=== PATIENT | female | born 1965 ===

== ENCOUNTER 2024-01-06 11:45 | Inpatient (IN) | payer OTHER ==
[~2024-01-06] VITALS: Wt 72.1 kg
[2024-01-06 12:47] VITALS: BP 113/77
[2024-01-06] MEDS ORDERED: NEURONTIN300 MG PO (12:50)
[2024-01-06] MEDS ORDERED: VOLTAREN (12:51)
[2024-01-06] MEDS ORDERED: NORFLEX (12:52)
[2024-01-06 12:53] VITALS: BP 100/60
[2024-01-06 16:40] LABS: RH POSITIVE
[2024-01-10] MEDS ORDERED: TRANEXAMIC ACID 100MG/1ML (1000MG) AMPUL IV ONE ×2 (19:00)
[2024-01-10] MEDS ORDERED: CEFAZOLIN SODIUM 1,000 MG VIAL IV ONE (19:00)
[2024-01-10] MEDS ORDERED: ONDANSETRON HCL 2 MG/ML VIAL IV PRN (19:45)
[2024-01-10] MEDS ORDERED: OxyCODONE HCL 5 MG TABLET (ROXICODONE) PO PRN (19:45)
[2024-01-10] MEDS ORDERED: MORPHINE SULFATE 4 MG/ML CARTRIDGE IV PRN (19:45)
[2024-01-10] MEDS ORDERED: SODIUM CHLORIDE 0.45 % 1,000 ML IV SCH (19:45)
[2024-01-10] MEDS ORDERED: MORPHINE SULFATE 4 MG/ML VIAL IV ONE ×2 (20:35→21:05)
[2024-01-10] MEDS ORDERED: ONDANSETRON HCL 2 MG/ML VIAL IV ONE (21:05)
[2024-01-10] MEDS ORDERED: MEPERIDINE HCL 25 MG/ML AMPUL IV ONE (23:40)
[2024-01-11] MEDS ORDERED: ACETAMINOPHEN 500 MG GEL..CAP PO SCH
[2024-01-11] MEDS ORDERED: CEFAZOLIN SODIUM 1,000 MG VIAL IV SCH (01:00)
[2024-01-11] MEDS ORDERED: GABAPENTIN 300 MG CAPSULE PO SCH (01:00)
[2024-01-11 06:51] LABS: HEMATOCRIT 35.7 % (36.0-45.00); HEMOGLOBIN 11.7 g/dL (12.0-15.00); MEAN CELL VOLUME 81.9 fL (80.00-100.00); MEAN CORPUSCULAR HEMOGLOBIN 26.8 pg (27.00-32.0); MEAN CORPUSCULAR HGB CONC 32.7 g/dl (32.0-36.0); PLATELET COUNT 194 K/uL (150-450); RED BLOOD COUNT 4.36 M/uL (4.00-6.00); RED CELL DISTRIBUTION WIDTH 13.6 % (11.5-14.5)
[2024-01-11] MEDS ORDERED: MORPHINE SULFATE 4 MG/ML VIAL IV ONE (08:00)
[2024-01-11 08:25] VITALS: BP 100/60
[2024-01-11] MEDS ORDERED: SENNOSIDES 1 TAB TABLET PO SCH (09:00)
[2024-01-11] MEDS ORDERED: APIXABAN 2.5 MG TABLET PO SCH (09:00)
[2024-01-11 16:10] VITALS: BP 90/55
[2024-01-12 01:03] VITALS: BP 108/61
[2024-01-12 06:50] LABS: HEMATOCRIT 35.8 % (36.0-45.00); HEMOGLOBIN 11.5 g/dL (12.0-15.00); MEAN CELL VOLUME 82.3 fL (80.00-100.00); MEAN CORPUSCULAR HEMOGLOBIN 26.4 pg (27.00-32.0); MEAN CORPUSCULAR HGB CONC 32.1 g/dl (32.0-36.0); PLATELET COUNT 192 K/uL (150-450); RED BLOOD COUNT 4.35 M/uL (4.00-6.00); RED CELL DISTRIBUTION WIDTH 13.6 % (11.5-14.5)
[2024-01-12 10:12] VITALS: BP 106/68
[2024-01-12] MEDS ORDERED: ELIQUIS2.5 MG PO (15:37)
[2024-01-12] MEDS ORDERED: PERCOCET 5-3251 EACH PO (15:37)
[2024-01-12] MEDS ORDERED: LEVOFLOXACIN750 MG PO (15:37)
== END 2024-01-12 15:43 | disposition home or self-care (01) | DRG 477 ==
LOC: O/R 01-10 06:25 → SURH 01-10 11:45 → OB/GYN 01-11 05:13
PROVIDERS: ADMIT Orthopaedic Surgery; ATTEND Orthopaedic Surgery
PROC: 0QB90ZZ Excision of Left Femoral Shaft, Open Approach (ICD-10-PCS; 2024-01-10)
PROC: 0QU90JZ Supplement Left Femoral Shaft with Synthetic Substitute, Open Approach (ICD-10-PCS; 2024-01-10)
PROC: 0QB90ZX Excision of Left Femoral Shaft, Open Approach, Diagnostic (ICD-10-PCS; principal; 2024-01-10 19:00)
DX: S72.352K Displaced comminuted fracture of shaft of left femur, subsequent encounter for closed fracture with nonunion (principal); S72.322A Displaced transverse fracture of shaft of left femur, initial encounter for closed fracture

== ENCOUNTER 2024-07-04 09:09 | Inpatient (IN) | payer OTHER ==
[~2024-07-04] VITALS: Wt 69.9 kg
[~2024-07-04 09:09] MED LIST: ELIQUIS2.5 MG PO; LEVOFLOXACIN750 MG PO; NEURONTIN300 MG PO; NORFLEX; PERCOCET 5-3251 EACH PO; VOLTAREN
[2024-07-04 10:34] LABS: HEMATOCRIT 41.1 % (36.0-45.00); HEMOGLOBIN 13.6 g/dL (12.0-15.00); MEAN CELL VOLUME 80.7 fL (80.00-100.00); MEAN CORPUSCULAR HEMOGLOBIN 26.6 pg (27.00-32.0); PLATELET COUNT 242 K/uL (150-450); RED BLOOD COUNT 5.09 M/uL (4.00-6.00); RED CELL DISTRIBUTION WIDTH 14.6 % (11.5-14.5)
[2024-07-04 10:47] LABS: RH POSITIVE
[2024-07-04 10:48] LABS: INR 0.95; PROTHROMBIN TIME 10.4 SECONDS (9.0-11.5)
[2024-07-04 10:53] LABS: PH,URINE 6.5 (5.0-8.0); URINE APPEARANCE Clear; URINE BILIRRUBIN Negative (NEGATIVE); URINE BLOOD Negative; URINE COLOR Yellow; URINE GLUCOSE Negative (NEGATIVE); URINE KETONE Negative (NEGATIVE); URINE LEUKOCYTE Negative; URINE NITRATE Negative; URINE PROTEIN Negative (NEGATIVE); URINE UROBILINOGEN 0.2 E.U./dl
[2024-07-04 10:57] LABS: COVID-19 AG NEGATIVE (NEGATIVE)
[2024-07-04 10:59] LABS: ALBUMIN 3.8 gm/dL (3.4-5.0); BILIRUBIN TOTAL 0.45 mg/dL (0.3-1.2); CALCIUM 9.5 mg/dL (8.5-10.1); CREATININE SERUM 0.97 mg/dL (0.55-1.02); GFR 59.4; GLOBULINA 3.2 G/DL (2.4-3.5); POTASSIUM 4.55 mEq/L (3.5-5.1)
[2024-07-04 10:59] LABS: URINE BACTERIA 116.2 uL (0.0-1933); URINE EPITHELIAL CELLS 6.6 uL (0.0-38.8); URINE RBC 15.7 uL (0.0-20.8); URINE WBC 5.6 uL (0.0-23.2)
[2024-07-04 11:32] LABS: CHOL HDL RATIO 4.9 (0-5.0)
[2024-07-10] MEDS ORDERED: CEFAZOLIN SODIUM 1,000 MG VIAL ONE ×2 (09:35→19:14)
[2024-07-10] MEDS ORDERED: TRANEXAMIC ACID 100MG/1ML (1000MG) AMPUL IV ONE ×3 (09:35→12:15)
[2024-07-10] MEDS ORDERED: BUPIVACAINE HCL/MPF 0.5% 30ML VIAL ONE (11:49)
[2024-07-10] MEDS ORDERED: LIDOCAINE HCL 1%/EPINEPHRINE 20ML VIAL IJ ONE (11:49)
[2024-07-10] MEDS ORDERED: KETOROLAC TROMETHAMINE 60 MG VIAL IM ONE ×2 (11:49→12:00)
[2024-07-10] MEDS ORDERED: MORPHINE SULFATE 4 MG/ML CARTRIDGE IV ONE (12:00)
[2024-07-10] MEDS ORDERED: CEFAZOLIN SODIUM 1,000 MG VIAL IV ONE (12:00)
[2024-07-10] MEDS ORDERED: BUPIVACAINE HCL 30 ML VIAL IJ ONE (12:15)
[2024-07-10] MEDS ORDERED: ONDANSETRON HCL 2 MG/ML VIAL IV PRN (16:15)
[2024-07-10] MEDS ORDERED: SODIUM CHLORIDE 0.45 % 1,000 ML IV SCH (16:15)
[2024-07-10] MEDS ORDERED: MORPHINE SULFATE 4 MG/ML CARTRIDGE IV PRN (16:15)
[2024-07-10] MEDS ORDERED: OxyCODONE HCL 5 MG TABLET (ROXICODONE) PO PRN (16:15)
[2024-07-10] MEDS ORDERED: MORPHINE SULFATE 4 MG/ML VIAL IV ONE ×2 (16:40→17:10)
[2024-07-10] MEDS ORDERED: CEFAZOLIN SODIUM 1,000 MG VIAL IV SCH (17:00)
[2024-07-10] MEDS ORDERED: GABAPENTIN 300 MG CAPSULE PO SCH (17:00)
[2024-07-10] MEDS ORDERED: ACETAMINOPHEN 500 MG GEL..CAP PO SCH (18:00)
[2024-07-10 20:08] VITALS: BP 105/66
[2024-07-11 00:03] VITALS: BP 95/55; O2SAT 97
[2024-07-11 07:44] LABS: BASO % 0.3 % (0.1-1.2); EOS # 0.24 (0.04-0.54); EOS % 3.3 % (0.7-7.0); HEMATOCRIT 30.9 % (34.1-44.9); HEMOGLOBIN 9.9 g/dL (11.2-15.7); LYMPH # 2.57 (1.18-3.74); LYMPH % 35.4 % (19.3-53.1); MEAN CORPUSCULAR HEMOGLOBIN 26.3 pg (25.6-32.2); MONO # 0.51 (0.24-0.82); NEUT % 53.9 % (34.0-71.1); PLATELET COUNT 208 K/uL (163-369); RED BLOOD COUNT 3.77 M/uL (3.93-5.22); RED CELL DISTRIBUTION WIDTH 13.8 % (11.6-14.4)
[2024-07-11 08:00] VITALS: BP 91/64; O2SAT 95
[2024-07-11] MEDS ORDERED: SENNOSIDES 1 TAB TABLET PO SCH (09:00)
[2024-07-11 12:21] LABS: COVID-19 AG NEGATIVE (NEGATIVE)
[2024-07-11 16:00] VITALS: BP 94/58
[2024-07-12 01:44] VITALS: BP 104/65
[2024-07-12 07:06] LABS: BASO % 0.2 % (0.1-1.2); EOS # 0.47 (0.04-0.54); EOS % 5.6 % (0.7-7.0); HEMATOCRIT 29.7 % (34.1-44.9); HEMOGLOBIN 9.6 g/dL (11.2-15.7); LYMPH # 2.17 (1.18-3.74); LYMPH % 26.1 % (19.3-53.1); MEAN CORPUSCULAR HEMOGLOBIN 26.5 pg (25.6-32.2); MONO # 0.68 (0.24-0.82); MONO % 8.2 % (4.7-12.5); NEUT # 4.97 (1.56-6.13); NEUT % 59.7 % (34.0-71.1); PLATELET COUNT 209 K/uL (163-369); RED BLOOD COUNT 3.62 M/uL (3.93-5.22); RED CELL DISTRIBUTION WIDTH 13.8 % (11.6-14.4)
[2024-07-12 08:00] VITALS: BP 99/64
[2024-07-12] MEDS ORDERED: IRON FUM,PS/FOLIC ACID/VITC/B3 1 CAP CAPSULE PO SCH (09:00)
[2024-07-12] MEDS ORDERED: PERCOCET 5-3251 EACH PO (16:03)
[2024-07-12] MEDS ORDERED: DUI500 PO (16:03)
[2024-07-12] MEDS ORDERED: ELIQUIS2.5 MG PO (16:03)
[2024-07-12 16:49] VITALS: BP 94/61
== END 2024-07-12 18:31 | disposition designated cancer center or children's hospital (05) | DRG 481 ==
LOC: O/R 07-10 07:03 → SURH 07-10 09:15 → OB/GYN 07-10 17:47
PROVIDERS: ADMIT Orthopaedic Surgery; ATTEND Orthopaedic Surgery
PROC: 0QU90JZ Supplement Left Femoral Shaft with Synthetic Substitute, Open Approach (ICD-10-PCS; 2024-07-10)
PROC: 0QH Lower Bones, Insertion (ICD-10-PCS; 2024-07-10)
PROC: 0QS904Z Reposition Left Femoral Shaft with Internal Fixation Device, Open Approach (ICD-10-PCS; principal; 2024-07-10 17:00)
DX: S72.352K Displaced comminuted fracture of shaft of left femur, subsequent encounter for closed fracture with nonunion (principal); M80.852A Other osteoporosis with current pathological fracture, left femur, initial encounter for fracture; M97.02XA Periprosthetic fracture around internal prosthetic left hip joint, initial encounter